=== PATIENT | male | born 2000 | race Caucasian/White ===

== ENCOUNTER 2022-01-20 15:04 | Emergency (ER) | payer OTHER ==
[2022-01-20] MEDS ORDERED: Lidocaine 2% 5 ML SDV INJECT ONE (15:25)
== END 2022-01-20 16:00 | disposition home or self-care (01) ==
LOC: VM.ED 15:04
DX: S60.351A Superficial foreign body of right thumb, initial encounter (principal); W45.8XXA Other foreign body or object entering through skin, initial encounter
CPT/HCPCS: 99283